=== PATIENT | female | born 1985 | race Caucasian/White ===

== ENCOUNTER → 2020-08-08 | Outpatient (REF) | payer OTHER, SELFPAY ==
[2020-08-08 15:24] LABS: HEMATOCRIT 37.4 % (36.0-47.0); HEMOGLOBIN 12.3 g/dl (12.0-15.5); MEAN CORPUSCULAR HEMOGLOBIN 31.6 pg (27.0-33.0); MEAN CORPUSCULAR HGB CONC 32.9 g/dl (32.0-36.5); MEAN CORPUSCULAR VOLUME 96.1 fl (80.0-96.0); PLATELET COUNT, AUTOMATED 225 10^3/uL (150-450); RED BLOOD COUNT 3.89 10^6/uL (4.00-5.40); WHITE BLOOD COUNT 5.6 10^3/uL (4.0-10.0)
[2020-08-08 15:32] LABS: GLUCOSE CHALLENGE TEST 1 HOUR 96 MG/DL (LESS THAN 140)
[2020-08-08 16:36] LABS: HIV 1&2 SCREEN CENTAUR NEGATIVE (NEGATIVE)
== END ==
LOC: M PLALAB 12:14
PROVIDERS: ATTEND Obstetrics & Gynecology
DX: Z34.91 Encounter for supervision of normal pregnancy, unspecified, first trimester (principal)

== ENCOUNTER → 2020-09-08 | Outpatient (CLI) | payer SELFPAY | LOC: M PLALAB 12:05 | PROVIDERS: ATTEND Advanced Practice Midwife | DX: Z34.81 Encounter for supervision of other normal pregnancy, first trimester (principal); Z3A.00 Weeks of gestation of pregnancy not specified ==

== ENCOUNTER → 2020-11-12 | Outpatient (CLI) | payer OTHER, SELFPAY ==
--- NOTE | 2020-11-13 11:26 | REP ---
INDICATION: ANATOMY COMPARISON: None. TECHNIQUE: Transabdominal obstetrical ultrasound with color Doppler evaluation. FINDINGS: Examination demonstrates a single live intrauterine in breech presentation. motion is identified by technologist. Placenta is noted posterior and grade 1 without evidence for placenta previa or abruption. Amniotic fluid volume is normal. Cervix measures 3.9 cm in length and appears closed.. Gestational age by LMP 22 weeks 5 days with CECILE 03/13/2021. Gestational age by current measurements 22 weeks 6 days with CECILE 03/12/2021. FHR equals 147 beats per minute. BPD: 5.6 cm 23 weeks 0 days HC: 20.4 cm 22 weeks 3 days AC: 18.9 cm 23 weeks 4 days FL: 3.9 cm 22 weeks 2 days HL: 3.7 cm 23 weeks 0 days HC/AC: 1.08 Estimated weight 554 grams (58thpercentile). Anatomical assessment demonstrates normal structures including cranium, choroid plexus, cavum, cerebellum/posterior fossa, facial features, lungs, four-chamber heart, diaphragm, stomach, cord insertion/three-vessel cord, kidneys/bladder, spine, and extremities. IMPRESSION: Single live intrauterine in breech presentation demonstrating appropriate is estimated weight and growth. Limited evaluation of the cardiac ventricular outflow tracts. Remainder of the anatomical assessment is complete and normal. <Electronically signed by Andrew Walton > 11/13/20 [id number]
== END ==
LOC: M WHC 13:17
PROVIDERS: ATTEND Obstetrics & Gynecology
DX: Z34.82 Encounter for supervision of other normal pregnancy, second trimester (principal); Z3A.22 22 weeks gestation of pregnancy

== ENCOUNTER → 2020-12-09 | Outpatient (CLI) | payer OTHER | LOC: M WHC 12:15 | PROVIDERS: ATTEND Obstetrics & Gynecology | DX: Z3A.26 26 weeks gestation of pregnancy (principal) ==

== ENCOUNTER → 2020-12-11 | Outpatient (REF) | payer OTHER, SELFPAY ==
[2020-12-11 13:54] LABS: HEMATOCRIT 37.7 % (36.0-47.0); HEMOGLOBIN 12.3 g/dl (12.0-15.5); MEAN CORPUSCULAR HEMOGLOBIN 30.8 pg (27.0-33.0); MEAN CORPUSCULAR HGB CONC 32.6 g/dl (32.0-36.5); MEAN CORPUSCULAR VOLUME 94.3 fl (80.0-96.0); PLATELET COUNT, AUTOMATED 222 10^3/uL (150-450)
== END ==
LOC: M PLALAB 09:41
PROVIDERS: ATTEND Advanced Practice Midwife
DX: Z34.92 Encounter for supervision of normal pregnancy, unspecified, second trimester (principal)
CPT/HCPCS: 36415; 82950; 85027; 86850; 86900; 86901; J2790

== ENCOUNTER → 2020-12-24 | Outpatient (CLI) | payer OTHER ==
--- NOTE | 2020-12-24 17:25 | REP ---
INDICATION: F/U ANATOMY. COMPARISON: 11/12/2020. TECHNIQUE: Real-time sonographic evaluation of the gravid uterus performed. FINDINGS: Estimated gestational age is20 weeks 5 days, EDC 03/13/2021. Today's measurements indicate appropriate growth. Presentation: Cephalic Placenta posterior, grade 1, without evidence of placenta previa. heart rate is recorded at 144 beats per minute. Amniotic fluid is subjectively normal. MINDA 14.7, normal 9.3-23.0. Closed cervical length is measured at 3.3 cm. Biometry chart: BPD: 74 mm, 29 weeks 4 days, 67th percentile. HC: 279 mm, 30 weeks 4 days, 77th percentile AC: 249 mm, 29 weeks 1 days, 58th percentile Femur length: 54 mm, 28 weeks 4 days, 48th percentile HC to AC ratio: 1.12, normal range 0.99-1.18. Estimated weight: 1339g, 52nd percentile. The four-chamber heart and ventricular outflow tracts are visualized on today's exam and appear grossly unremarkable. The previously noted echogenic focus in the right ventricle is not seen on today's exam. IMPRESSION: Viable single intrauterine gestation as above.The four-chamber heart and ventricular outflow tracts are visualized on today's exam and appear grossly unremarkable. <Electronically signed by Quan Harris > 12/24/20 [id number]
== END ==
LOC: M WHC 15:59
PROVIDERS: ATTEND Obstetrics & Gynecology
DX: Z36.89 Encounter for other specified antenatal screening (principal); Z3A.20 20 weeks gestation of pregnancy

== ENCOUNTER → 2021-02-13 | Outpatient (REF) | payer OTHER | LOC: M SFHCWAGY 13:18 | PROVIDERS: ATTEND Advanced Practice Midwife | DX: Z34.93 Encounter for supervision of normal pregnancy, unspecified, third trimester (principal); Z3A.00 Weeks of gestation of pregnancy not specified ==